=== PATIENT | female | born 1990 | race Caucasian/White ===

== ENCOUNTER → 2024-01-07 06:43 | Outpatient (CLI) | payer OTHER, SELFPAY ==
--- NOTE | 2024-01-07 06:46 | DI.US.S_ITS ---
PROCEDURE: US OB >= 14 WEEKS FETUS INDICATIONS: ANATOMY SCAN OUTSIDE/PRIOR DATING DATA: Last menstrual period (LMP): 08/09/2023. LMP-based estimated date of delivery (JO): 05/15/2024. The calculations are made using the clinical JO of 05/15/2024. TECHNIQUE: Real-time scanning was performed of the fetus, with image documentation and biometric measurements. Endovaginal scanning: Not performed COMPARISON: None. FINDINGS: General: A single living intrauterine gestation is present. Presentation: Vertex. Placenta: Placental position is posterior , without previa. Low lying placenta, with the edge 1.6 cm from the cervical os. Amniotic fluid index: 15.5 cm, normal range is 5-24 cm. Single deepest vertical pocket is 4.6 cm. heart rate: 152 beats per minute. Maternal cervical canal: 5.4 cm long. Normal lower limit is 2.5 cm. biometrics: Biparietal diameter: 5.5 cm, 22 weeks 5 days Head circumference: 20.2 cm, 22 weeks 3 days Abdominal circumference: 17.4 cm, 22 weeks 2 days Femur length: 3.8 cm, 22 weeks 1 day Clinically estimated gestational age: 21 weeks 4 days Composite gestational age from present scan: 22 weeks 3 days Estimated weight and percentile: 489 g, 80th percentile Anatomic survey: Neuro: Ventricles are non-dilated at less than 10 mm. Cisterna magna is normal at 3-11 mm. Cerebellum is normal in size and morphology. Nuchal skin fold: Normal at less than 6 mm between 14-21 weeks gestational age. Face: Lip, facial profile are normal. Nasal bone is not clearly identified, but possibly due to positioning. Spine: No evidence for spina bifida. Heart: 4-chambered heart is present, with normal ventricular outflow tracts. Diaphragm: Diaphragm is intact. Stomach: Left-sided stomach is present. Kidneys: No hydronephrosis. Normal is less than 5 mm in 2nd trimester, less than 7 mm in 3rd trimester. Cord: 3-vessel cord has orthotopic insertion. Bladder: Normal in size. Extremities: All 4 extremities identified. IMPRESSION: Single living intrauterine at 22 weeks 3 days, JO of 05/15/2024. Nasal bone not is not clearly identified. Recommend short-term follow-up. Otherwise, normal anatomy survey. Estimated weight of 489 g, 80th percentile. We strive to produce accurate, complete, and clear reports of imaging services. To assist us in improving patient care, this report was composed using standard report templates and voice recognition software. Therefore, it may contain abnormal punctuation, insertions and/or omissions. Occasional wrong-word or sound-alike substitutions may occur. Though we review the report and make efforts to correct it, we do recommend that the report be read carefully in proper context to recognize any text inaccuracies. Dictated by: Winston Louie M.D. on 01/07/2024 at 9:51 Approved by: Winston Louie M.D. on 01/07/2024 at 9:54
== END ==
PROVIDERS: Referring Provider Advanced Practice Midwife; Visit Provider Advanced Practice Midwife
DX: Z34.02 Encounter for supervision of normal first pregnancy, second trimester (principal); Z3A.22 22 weeks gestation of pregnancy
CPT/HCPCS: 76811

== ENCOUNTER → 2024-01-13 06:47 | Outpatient (CLI) | payer OTHER, SELFPAY ==
--- NOTE | 2024-01-13 06:49 | DI.US.S_ITS ---
PROCEDURE: US OB FOLLOW UP INDICATIONS: Anatomy follow up OUTSIDE/PRIOR DATING DATA: Last menstrual period (LMP): 08/09/2023. LMP-based estimated date of delivery (JO): 05/15/2024. First dating scan (date and location): 01/07/2024. Estimated date of delivery (JO) from first dating scan: 05/09/2024. The calculations are made using the clinical JO of 05/15/2024. TECHNIQUE: Real-time scanning was performed of the fetus, with image documentation. Endovaginal scanning: Not performed. COMPARISON: [facility], OB >= 14 WEEKS FETUS, 01/07/2024, 6:56. FINDINGS: A single living intrauterine gestation is present. Presentation: Vertex. Placenta: Placental position is posterior, without previa. Low lying 1.7 cm from the internal cervical os. Amniotic fluid index: 17.7 cm, normal range is 5-24 cm. Single deepest vertical pocket is 4.9 cm. heart rate: 132 beats per minute. Maternal cervical canal: 5.4 cm long. Normal lower limit is 2.5 cm. Clinically estimated gestational age: 22 weeks 3 days Nasal bone is not within normal limits. IMPRESSION: 1. Alvaren[place] living intrauterine at 22 weeks 3 days based on prior clinical dating. 2. Normal amniotic fluid. Low lying placenta 1.7 cm from the internal cervical os. 3. Normal nasal bone. -Follow-up OB ultrasound is recommended. Dictated by: Cash Maldonado M.D. on 01/13/2024 at 12:12 Approved by: Cash Maldonado M.D. on 01/13/2024 at 12:23
== END ==
LOC: US 06:48
PROVIDERS: Referring Provider Advanced Practice Midwife; Visit Provider Advanced Practice Midwife
DX: O44.42 Low lying placenta NOS or without hemorrhage, second trimester (principal); Z3A.22 22 weeks gestation of pregnancy
CPT/HCPCS: 76816

== ENCOUNTER → 2024-03-04 13:43 | Outpatient (CLI) | payer OTHER, SELFPAY ==
--- NOTE | 2024-03-04 13:45 | DI.US.S_ITS ---
PROCEDURE: US OB LIMITED INDICATIONS: LOW LYING PLACENTA OUTSIDE/PRIOR DATING DATA: Last menstrual period (LMP): 08/09/2023. LMP-based estimated date of delivery (JO): 05/15/2024. The calculations are made using the clinical JO of 05/15/2024. TECHNIQUE: Real-time scanning was performed of the fetus, with image documentation. Endovaginal scanning: Not performed COMPARISON: [facility], OB FOLLOW UP, 01/13/2024, 7:03. FINDINGS: A single living intrauterine gestation is present. Presentation: Vertex, spine left. Placenta: Placental position is posterior. The inferior margin of the placenta is 2.5 cm from the internal cervical os. Amniotic fluid index: 18.0 cm, normal range is 5-24 cm. Single deepest vertical pocket is 6.5 cm. heart rate: 149 beats per minute. Maternal cervical canal: 6.5 cm long. Normal lower limit is 2.5 cm. Clinically estimated gestational age: 29 weeks 5 days Mild right pelviectasis measuring 6.6 mm. No left pelviectasis. IMPRESSION: 1. Alvarenga living intrauterine at 29 weeks 5 days based on prior dating. 2. Normal amniotic fluid. Placenta is within normal limits. The inferior margin of the placenta is 2.5 cm from the internal cervical os. 3. Mild right kidney pelviectasis measuring 6.6 cm. Upper limits of normal. Dictated by: Cash Maldonado M.D. on 03/05/2024 at 14:41 Approved by: Cash Maldonado M.D. on 03/05/2024 at 14:50
== END ==
PROVIDERS: Referring Provider Advanced Practice Midwife; Visit Provider Advanced Practice Midwife
DX: Z34.03 Encounter for supervision of normal first pregnancy, third trimester (principal); Z3A.29 29 weeks gestation of pregnancy
CPT/HCPCS: 76815

== ENCOUNTER → 2024-03-17 16:23 | Outpatient (CLI) | payer OTHER, SELFPAY ==
[2024-03-17 17:31] LABS: Alanine Aminotransferase 11 IU/L (<35); Albumin 3.5 g/dL (3.5-5.0); Albumin Globulin Ratio 1.1 (1.0-2.8); Alkaline Phosphatase 111 U/L (38-126); Aspartate Aminotransferase 20 IU/L (14-36); Bilirubin Total 0.6 mg/dL (0.2-1.3); Bilirubin Unconjugated 0.2 mg/dL (0.0-1.1); Globulin 3.1 g/dL (1.7-4.1); HEMOLYSIS < 15 (0-50); Total Protein 6.6 g/dL (6.3-8.2)
== END ==
PROVIDERS: Referring Provider Nurse Practitioner Obstetrics & Gynecology; Visit Provider Nurse Practitioner Obstetrics & Gynecology
DX: Z34.90 Encounter for supervision of normal pregnancy, unspecified, unspecified trimester (principal); L29.9 Pruritus, unspecified
CPT/HCPCS: 36415; 80076; 82239

== ENCOUNTER 2024-05-16 09:03 | Inpatient (IN) | payer OTHER, SELFPAY ==
[2024-05-16 10:17] LABS: Add Manual Diff / Slide Review NO; Basophils Absolute Auto 0 /uL (0-100); Basophils Percent Auto 0.2 % (0-2); Eosinophils Absolute Auto 0 /uL (0-450); Eosinophils Percent Auto 0.5 % (2-4); Hematocrit 33.8 % (36-46); Hemoglobin 11.6 g/dL (12.0-16.0); Lymphocytes Absolute Auto 1600 /uL (1100-4500); Lymphocytes Percent Auto 18.2 % (25-40); Mean Corpuscular HGB Conc 34.4 % (30-36); Mean Corpuscular Hemoglobin 28.9 PG (26-34); Monocytes Absolute Auto 400 /uL (0-900); Monocytes Percent Auto 4.4 % (3-14); Neutrophils Absolute Auto 6900 /uL (1500-7000); Neutrophils Percent Auto 76.7 % (50-75); Platelet Count 131 X10^3/uL (150-400); Red Blood Cell Count 4.03 X10^6/uL (4.0-5.2); Red Cell Distribution Width 13.8 % (11.6-14.8)
[2024-05-16 10:51] VITALS: BP 126/82
--- NOTE | 2024-05-16 12:36 | P.HPOB_ITS ---
OB HPI Date/Time Date of admission: 05/16/24 Date Patient Seen: 05/16/24 Time Patient Seen: 11:00 History of Present Condition Chief complaint: PROM : 2 Para: 0 Estimated Date of Delivery: 05/15/24 Estimated Gestational Age (weeks): 40w1d Narrative: Irma Arzola is a 33 year old female who is 40w1d by LMP and confirmed by 7 week ultrasound. She received uncomplicated care with CNMs throughout this . She is here today well supported by her , Raza. Irma reported leaking of fluid that started approx 0100 and has continued with normal movement since then. Initially declined admission; now is here and happy to stay, consents to augmentation of labor. Amniotic fluid has been clear and pink tinged; she has also noticed blood smeared mucus for the last few days. History of Present care: good care, initiated at week # (7), number of visits (11) and pounds weight gain (22) Dating criteria: LMP confirmed by 1st trimester US Ultrasounds: normal 1st trimester US, normal mid trimester US and abnormal US findings (placenta previa resolved at 30 weeks) Obstetrical complications: none Medical complications: gastrointestinal (GERD) and psychiatric (Anxiety) Preadmission Labs Blood type: A (+) positive -: Antibody screen: negative, Cystic fibrosis screen: negative, GBS status: negative, HBsAG: negative, HIV: negative, HSV 1: negative, HSV 2: negative and RPR/VDLR: negative -: Chlamydia screen: not detected and Gonorrhea screen: not detected -: Rubella: immune and Varicella: immune HCT: 33.7 HCAB: negative PAP: Abnormal (ASCUS, HPV negative) Cell-free DNA: Low risk, XY Urine: No growth 1 hr GTT: 126 Prior (ies) History: TAB at 6weeks in 2016 Evaluation Evaluation Baseline heart rate: 140 Variability: Moderate (11-25) monitor accelerations: Present Monitor Decelerations: Absent Contraction Frequency (minutes): 9 (irregular in timing and intensity) Uterine Contraction Intensity: Strong/Firm Status: Category l Non-invasive Membranes Rupture Test: positive Comments: SVE deferred d/t PROM x 8 hours Cephalic presentation confirmed with bedside ultrasound. [facility] Medical History (Updated 05/16/24 @ 18:15 by Lakshmi Rees CNM, GRETCHEN) Tendonitis Depression with anxiety GERD (gastroesophageal reflux disease) Social History (Updated 05/16/24 @ 18:17 by Lakshmi Rees CNM, GRETCHEN) do you feel safe at home: Yes Smoking Status: Never smoker alcohol intake: former substance use type: marijuana Type(s) of exercise: walking and weight lifting Meds Home Medications and Allergies Home Medications Medication Instructions Recorded Confirmed Type No Known Home Medications 05/16/24 05/16/24 History Allergies Allergy/AdvReac Type Severity Reaction Status Date / Time Papaya Derivative Allergy Unknown Swelling Verified 05/16/24 18:20 of Lip/Tongue/Throat tree nuts Allergy Mild ITCHING Uncoded 05/16/24 18:20 ibuprofen AdvReac Intermediate Gastrointestinal Uncoded 05/16/24 18:20 Upset Review of Systems Review of Systems Narrative: Negative except as mentioned in HPI OB Exam Vital signs Blood Pressure: 131/84 Pulse Rate: 83 Temperature: 97.9 F Resp Effort & Inspection: normal respiratory effort, able to speak in complete sentences and symmetric chest movement Auscultation: clear to auscultation bilaterally Cardio Rate: regular rate Rhythm: regular rhythm Presentation: vertex Estimated Weight (lbs): 7 Amniotic Fluid: clear Objective Labs 05/16/24 12:35 Labs: Laboratory Results - last 24 hr 05/16/24 10:00 WBC 9.0 RBC 4.03 Hgb 11.6 L Hct 33.8 L MCV 84.0 MCH 28.9 MCHC 34.4 RDW 13.8 Plt Count 131 L Neut % (Auto) 76.7 H Lymph % (Auto) 18.2 L [place] % (Auto) 4.4 Eos % (Auto) 0.5 L Baso % (Auto) 0.2 Neut # (Auto) 6900 Lymph # (Auto) 1600 [place] # (Auto) 400 Eos # (Auto) 0 Baso # (Auto) 0 Blood Type A Positive Antibody Screen Negative Assessment and Plan Assessment and Plan Assessment and Plan narrative: at 40w1d by LMP and confirmed by 7 week ultrasound. GBS neg Rh positive Anxiety Depression FHR Cat 1 PROM x 9 hours Plan: Admit to L&D. Amnisure to confirm ROM. Review r/b/a of augmentation of labor versus expectant management. Begin pitocin augmentation with continuous monitoring. Epidural when uncomfortable with contractions/desired. Anticipate . Time-Based Coding :: [TOTAL MINUTES] spent with patient and on the chart (including review of chart, obtaining history, exam, reviewing outside data, placing orders, documenting exam and treatment plan, and counseling patient) on [DATE].
[2024-05-16 12:47] LABS: Add Manual Diff / Slide Review NO; Basophils Absolute Auto 100 /uL (0-100); Basophils Percent Auto 0.7 % (0-2); Eosinophils Absolute Auto 0 /uL (0-450); Eosinophils Percent Auto 0.3 % (2-4); Hematocrit 35.8 % (36-46); Hemoglobin 12.3 g/dL (12.0-16.0); Lymphocytes Absolute Auto 2200 /uL (1100-4500); Lymphocytes Percent Auto 20.9 % (25-40); Mean Corpuscular HGB Conc 34.3 % (30-36); Mean Corpuscular Hemoglobin 28.9 PG (26-34); Mean Corpuscular Volume 84.5 fL (80-100); Monocytes Absolute Auto 500 /uL (0-900); Monocytes Percent Auto 4.9 % (3-14); Neutrophils Absolute Auto 7700 /uL (1500-7000); Neutrophils Percent Auto 73.2 % (50-75); Platelet Count 140 X10^3/uL (150-400); Red Blood Cell Count 4.24 X10^6/uL (4.0-5.2); White Blood Cell Count 10.5 X10^3/uL (4.5-11.0)
[2024-05-16] MEDS: LACTATED RINGERS 1,000 ML 100 ML IV ×2 (14:23→20:38)
[2024-05-16] MEDS: OXYTOCIN PREMIX 30 UNIT/500 ML PLAST..BAG IV (14:24)
[2024-05-16 18:27] VITALS: BP 131/84; PULSE 83; TEMP 36.6
--- NOTE | 2024-05-16 18:42 | PM.OBPNLAB ---
Date/Time Date Patient Seen: 05/16/24 Time Patient Seen: 17:00 Pain Control Pain control: tolerating well Comments: Irma is feeling contractions intensify, but most are still very manageable. She is watching television with her . Pelvic Exam Amniotic membrane status: Ruptured (x 16 hours) Comments: Clear fluid. Pitocin initiated at 1424. Vital Signs at 1436: BP 130/85 HR 73 bpm T: 36.6 C Contractions Contractions on admission: irregular Monitor mode: External Pitocin rate (mU/min): 8 Contraction frequency (min): 5 (3-8) Contraction duration (min): 1 (30 sec - 2 min) Contraction pattern: Irregular Contraction intensity: Strong/Firm Status status: Category l Heart Rate Baseline: 125 (wandering baseline) Monitor Accelerations: Present Monitor Decelerations: Absent Monitor Variability: Moderate Assessment and Plan Assessment: other (PROM, early labor, augmentation) Plan: continuous present management Comments: at 40w1d Early labor PROM x 16 hours Afebrile GBS negative FHR Cat 1 Continue augmentation with pitocin. Epidural when desired; recommend that contractions be more consistent and painful. Anesthesia present, consenting patient for epidural. Anticipate NSVB.
--- NOTE | 2024-05-16 21:04 | P.PCN_ITS ---
Regional Block Pre-procedure Procedure: Continuous Lumbar Epidural for L&D (with dural puncture) Attending OB provider: Lakshmi Rees PMH/ROS narrative: 33yo female in labor with SROM requesting epidural. See anesthesia pre- evaluation note for further details. ASA Class: II Labs: Hct 35.8 % (36-46) L 05/16/24 12:35 Plt Count 140 X10^3/uL (150-400) L 05/16/24 12:35 Medications: Current Medications Generic Name Dose Route Start Last Admin Trade Name Freq PRN Reason Stop Dose Admin Acetaminophen 975 mg 05/16/24 12:32 Acetaminophen 325 Mg Tablet PO Q8H PRN Pain, Mild (1-3) Calcium Carbonate 1,000 mg 05/16/24 12:32 Calcium Carbonate 500 Mg Tab PO Q2HR PRN Dyspepsia Carboprost Tromethamine 250 mcg 05/16/24 12:32 Carboprost 250 Mcg/Ml Ampul IM Q90M PRN Bleeding Diphenhydramine HCl 25 mg 05/16/24 21:03 Diphenhydramine 50 Mg/Ml Vial IV Q10M PRN Pruritis Ephedrine Sulfate 10 mg 05/16/24 21:03 Ephedrine 50 Mg/Ml Vial IV Q5M PRN Blood pressure decrease more than 20% of baseline. Fentanyl 100 mcg 05/16/24 12:32 Fentanyl 100 Mcg/2 Ml Inj IV Q1H PRN Pain, Severe (7-10) Lactated Ringer's 1,000 mls @ 100 mls/hr 05/16/24 12:45 05/16/24 20:38 Lactated Ringers IV 05/16/24 22:44 100 mls/hr CONT HUNG Administration Oxytocin/Lactated Ringer's 30 unit in 500 mls @ 200 mls/hr 05/16/24 12:32 Oxytocin Premix IV CONT PRN Bleeding Protocol Tranexamic Acid 1,000 mg/ 100 mls @ 600 mls/hr 05/16/24 12:32 Sodium Chloride IV NOW PRN Bleeding Oxytocin/Lactated Ringer's 30 unit in 500 mls @ 2 mls/hr 05/16/24 12:45 05/16/24 14:24 Oxytocin Premix IV 2 milliunit/min TITRATE HUNG 2 mls/hr Administration Protocol 2 MILLIUNIT/MIN FENT 2MCG/ML BUPIV 0.125% EPI 200 mcg in 100 mls @ 6 mls/hr 05/16/24 21:15 Fentanyl/Bupiv/Ns 2mcg/Ml - 0.125% EPIDURAL CONT HUNG Lidocaine HCl 20 ml 05/16/24 12:32 Lidocaine 1% 20 Ml INJ INTRA-OP PRN Post Delivery Methylergonovine Maleate 0.2 mg 05/16/24 12:32 Methylergonovine 0.2 Mg Tablet PO Q6HR PRN Heavy Bleeding Methylergonovine Maleate 0.2 mg 05/16/24 12:32 Methylergonovine 0.2 Mg/Ml Vial IM NOW PRN Bleeding Mineral Oil 30 ml 05/16/24 12:32 Mineral Oil 30 Ml Udc TOP PRN PRN Version Misoprostol 800 mcg 05/16/24 12:32 Misoprostol 200 Mcg Tablet MI NOW PRN Bleeding Misoprostol 400 mcg 05/16/24 12:32 Misoprostol 200 Mcg Tablet SL NOW PRN Bleeding Nalbuphine HCl 2.5 mg 05/16/24 21:03 Nalbuphine 20 Mg/Ml Ampul IV Q10M PRN Pruritis Naloxone HCl 0.2 mg 05/16/24 12:32 Naloxone 0.4 Mg/Ml Vial IV Q2MIN PRN Opiate Reversal Ondansetron HCl 4 mg 05/16/24 12:32 Ondansetron 4 Mg/2 Ml Inj IV Q4HR PRN Nausea And Vomiting Oxytocin 10 unit 05/16/24 12:32 Oxytocin 10 Unit/Ml Vial IM NOW PRN Bleeding Allergies: Allergies Allergy/AdvReac Type Severity Reaction Status Date / Time Papaya Derivative Allergy Unknown Swelling Verified 05/16/24 18:20 of Lip/Tongue/Throat tree nuts Allergy Mild ITCHING Uncoded 05/16/24 18:20 ibuprofen AdvReac Intermediate Gastrointestinal Uncoded 05/16/24 18:20 Upset Procedure Insertion date: 05/16/24 Insertion time: 20:42 Prep/Local: 1% lidocaine (Chloraprep) Interspace: L3-4 Patient position: sitting Needle: 18 gauge Daratead (27g 5 Raquel for dural puncture) Loss of resistance with: saline BEKAH at (cm): 6 Catheter placed at SKIN (cm): 14 Catheter in SPACE (cm): 8 Insertion: Yes CSF, No Blood, Yes Paresthesia with insertion, No Paresthesia with injection and No Test dose reaction Initial Medications TEST DOSE time: 20:43 TEST DOSE: 1.5% lidocaine with epinephrine 1:200k (mL): 3 BOLUS DOSE time: 20:44 BOLUS DOSE (mL): 5 BOLUS DOSE med: other (2 ml same as test dose, 3 ml 2% lidocaine PF) Infusion INFUSION: 0.125% bupivacaine and with fentanyl 2 mcg/mL Initial rate (mL/hr): 8 Subsequent interventions: Epidural pump started at 20:55. Pt reports zero pain with most recent contraction; able to move BLE. 05/17 02:00-02:15 (with time change, dropped back to 01:15) - Pt with c/o LUQ pain with contractions; unable to give pain score but appears somewhat uncomfortable during contractions, which she reports as I think I'm having one, only feeling the LUQ crampy pain. Able to move BLE. Sensory level checked with epidural coverage to T10 on R, decreased throughout on L. RN reports tracing worse when pt on L side, so pt just tilted to L with pillow under R hip. Epidural bolused with 10 ml of 2% lido PF. Infusion pump rate increased from 8 to 10 ml/hr and near-empty epidural bag replaced with new one. KR 03:05 - Pt writhing and moaning in pain. Now complete per RN. Pt reports she could move BLE well after previous bolus, and she needs to labor down. Bolused with another 10 ml of 2% lido PF and increased infusion rate to 12 ml/hr. KR Post-procedure Anesthesia date START: 05/16/24 Anesthesia time START: 20:35 Anesthesia date END: 05/17/24 Anesthesia time END: 06:28 Post-procedure Anesthesia Assessment: Yes CV function: HR/BP stable, Yes Resp function: RR/sat/airway adequate, Yes Post-op hydration adequate, Yes Pain control adequate, Yes Nausea & vomiting absent, Yes Temperature > 36 C, Yes Mental status appropriate and No Anesthesia complications
--- NOTE | 2024-05-16 22:04 | PM.OBPNLAB ---
Date/Time Date Patient Seen: 05/16/24 Time Patient Seen: 22:04 Pain Control Pain control: epidural Comments: Irma is relieved now that she's comfortable with the epidural. Has slept about an hour. VS: BP 120/78 Temp: 36.6 C Pulse 74 bpm SpO2 99% Pelvic Exam Dilation (cm): 4 Effacement (%): 90 station: -2 Amniotic membrane status: Ruptured (x 21 h) Comments: Clear fluid Bloody show on exam. CE: 3.5-5 cm with cervical manipulation Caput present Contractions Contractions on admission: irregular Monitor mode: External Pitocin rate (mU/min): 12 Contraction frequency (min): 5 (3-8) Contraction duration (min): 1 Contraction pattern: Irregular Contraction intensity: Strong/Firm Status status: Category l Heart Rate Baseline: 125 Monitor Accelerations: Present Monitor Decelerations: Absent Monitor Variability: Moderate Assessment and Plan Comments: at 40w1d Comfortable with epidural Early labor PROM x 21 hours Afebrile GBS neg FHR Cat 1 Continue pitocin augmentation, continuous monitoring Recommend rest/sleep and frequent position changes Reassess PRN or in 4 hours Anticipate NSVB.
[2024-05-17] MEDS: FENT 2MCG/ML BUPIV 0.125% EPI 200 MCG/100 ML PLAST..BAG 6 MCG EPIDURAL (01:02)
[2024-05-17] MEDS: LACTATED RINGERS 1,000 ML 100 ML IV (01:02)
[2024-05-17 01:34] LABS: Appearance Urine UA CLEAR; Bilirubin Urine UA NEGATIVE (NEGATIVE); Color Urine UA YELLOW; Glucose Urine UA NEGATIVE (Negative); Ketones Urine UA NEGATIVE (NEGATIVE); Leukocyte Esterase Urine UA NEGATIVE (NEGATIVE); Nitrite Urine UA NEGATIVE (Negative); Occult Blood Urine UA TRACE-INTACT (Negative); Protein Urine UA NEGATIVE (Negative); Specific Gravity Urine UA <=1.005 (1.000-1.035); Urobilinogen Urine UA 0.2 E.U./dL (0.2)
[2024-05-17 01:46] LABS: Alanine Aminotransferase 11 IU/L (<35); Albumin Globulin Ratio 1.2 (1.0-2.8); Alkaline Phosphatase 190 U/L (38-126); Aspartate Aminotransferase 22 IU/L (14-36); BUN Creatinine Ratio 17.1 (6-22); Bilirubin Total 0.6 mg/dL (0.2-1.3); Blood Urea Nitrogen 13 mg/dL (7-17); Calcium 8.5 mg/dL (8.4-10.2); Carbon Dioxide 20 mmol/L (22-32); Chloride 107 mmol/L (98-107); Estimated Glomerular Filt Rate > 60 mL/min (>60); Globulin 2.5 g/dL (1.7-4.1); Glucose 80 mg/dL (70-100); HEMOLYSIS < 15 (0-50); Potassium 4.5 mmol/L (3.4-5.1); Sodium 132 mmol/L (137-145); Total Protein 5.5 g/dL (6.3-8.2); Uric Acid 7.1 mg/dL (2.5-6.2)
[2024-05-17 01:47] LABS: Creatinine Urine Random 47.77 mg/dL; Protein (Total) Urine Random 14 mg/dL (0-12); Protein Creatinine Ratio Urine 0.29 GRAM/24H
[2024-05-17 01:49] LABS: Add Manual Diff / Slide Review NO; Basophils Absolute Auto 0 /uL (0-100); Basophils Percent Auto 0.2 % (0-2); Eosinophils Absolute Auto 0 /uL (0-450); Eosinophils Percent Auto 0.1 % (2-4); Hematocrit 35.9 % (36-46); Hemoglobin 12.1 g/dL (12.0-16.0); Lymphocytes Absolute Auto 2400 /uL (1100-4500); Lymphocytes Percent Auto 17.4 % (25-40); Mean Corpuscular HGB Conc 33.6 % (30-36); Mean Corpuscular Hemoglobin 28.4 PG (26-34); Mean Corpuscular Volume 84.6 fL (80-100); Monocytes Absolute Auto 600 /uL (0-900); Monocytes Percent Auto 4.3 % (3-14); Neutrophils Absolute Auto 10600 /uL (1500-7000); Platelet Count 120 X10^3/uL (150-400); Red Blood Cell Count 4.25 X10^6/uL (4.0-5.2); Red Cell Distribution Width 13.8 % (11.6-14.8); White Blood Cell Count 13.6 X10^3/uL (4.5-11.0)
[2024-05-17] MEDS: ONDANSETRON 4 MG/2 ML INJ IV (03:02)
--- NOTE | 2024-05-17 03:37 | PM.OBPNLAB ---
Date/Time Date Patient Seen: 05/17/24 Time Patient Seen: 03:37 Pain Control Pain control: epidural (received 2 boluses as baby descended into pelvis) Comments: Irma has been having a difficult time coping with contractions; better after two extra doses of medication in epidural given but feeling a lot of pressure in her rectum/pelvis. Pelvic Exam Dilation (cm): 10 Effacement (%): 100 station: +1 Amniotic membrane status: Ruptured (x 21 h) Comments: CE by RN at 0230: complete, -1 station VS: First elevated pressure at 1934: 156/92 126/83 at 0128; 141/92 at 0212, 149/83 at 0228, 143/83 at 0302, 136/82 at 0317, 144/95 at 0328, 133/86 at 0342, 0358 129/89 HR 82-93 bpm SpO2: 100% Temp: 36.7 C Contractions Monitor mode: External Pitocin rate (mU/min): 8 Contraction frequency (min): 5 (3-8) Contraction pattern: Irregular Contraction intensity: Strong/Firm Status status: Category l Heart Rate Baseline: 125 Monitor Accelerations: Present Monitor Decelerations: Absent Monitor Variability: Moderate Assessment and Plan Assessment: active labor Plan: continuous present management Comments: in 2nd stage labor at 40w2d GBS neg Rh pos Gestational hypertension versus mild hypertensive due to pain PROM x 27 hours Initiate active pushing Titrate pitocin down per contraction pattern Provide emotional support Continue to encourage position change Review normal PET panel Anticipate NSVB
[2024-05-17] MEDS: OXYTOCIN PREMIX 30 UNIT/500 ML PLAST..BAG 200 UNIT IV ×2 (06:30→07:19)
[2024-05-17] MEDS: TRANEXAMIC ACID 1,000 MG in SODIUM CHLORIDE 0.9% 100 ML 600 MG IV ×2 (07:05→07:52)
--- NOTE | 2024-05-17 07:15 | PM.OBPRVD ---
Events: Labor Augmentation, Premature Rupture Membrane and Prolonged Rupture Membrane Labor & Delivery Delivery date: 05/17/24 Intrapartal Events: Prolonged 2nd Stage > 2.5 hours Cervical ripening method: none Induction method: per pitocin protocol Delivery augmentation: pitocin Delivery monitor: external FHT Route of delivery: Episiotomy description: None L&D Laceration Description: Perineal - 1st Degree and Vaginal - 1st Degree Delivery repair: chromic (3-0) Quantitative Blood Loss: 840 Anesthesia Type: Epidural Narrative: Labor progressed well with max 13 units of pitocin. Nova's epidural stopped working well around 0100 even after anaesthesia provided extra medication doses and Irma used self dosing often. Nova had a difficult 2nd stage, pushing for 3 hours and 3 minutes. She pushed on her left and right side as well as her back, rotating between the three throughout second stage with a lot of coaching and hands on support. To encourage after very little progress for about 1 hour, CNM helped guide the head under the pubic bone. The baby emerged MINERVA along with R hand and L shoulder; no nuchal cord. With one last push, the entire body delivered. The vigorous baby boy was placed on the maternal abdomen for drying and stimulation. Upon placing the on the mother's lower abdomen, bleeding was noticed and cord avulsion was assumed. CNM immediately clamped 's cord and SNM immediately clamped placental side. Apgars 9/9. No immediate cardiovascular side effects noted to the baby as a result of the avulsion. Cord blood was collected and sent to the lab for baseline CBC. Chux pad was removed and weighed for QBL. Pitocin was started to manage the 3rd stage. Perineum was inspected and found to have a 1st degree tear that extended down close to the anus and superficially into the introitus of the vagina; sutured with chromic 3-0 after rectal inspection revealed intact sphincter and perineal muscles. Second chux pad was removed and weighed for QBL and pitocin increased to max rate; TXA was ordered but delayed due to nursing difficulties/pump malfunction so a 2nd IV was started. QBL 840mL. Bleeding continued, so a 2nd bag of pitocin and TXA given, bladder emptied with straight catheter. PROM x 30 hours, clear fluid throughout. Mother and baby were skin to skin and stable when I left the room. Due to SNM getting blood exposure in mucus membranes, exposure panel, no charge, ordered and Irma consents to testing. Baby 1: Infant gender: Male Presentation: compound (one hand) Position: Right Occiput Transverse Placenta delivery description: Spontaneous and Expressed Cord Vessel Description: 3 Vessels score (1 min): 9 score (5 min): 9 weight: 3.365 kg Plan for aftercare: Routine care
--- NOTE | 2024-05-17 10:12 | PM.OBDS.1 ---
Discharge Providers Provider Date of admission: 05/16/24 09:03 Primary care physician: Lakshmi Rees CNM, ARNP Consults: 05/16/24 12:32 Consult to Anesthesiology Urgent Comment: Consulting Provider: Anesthesiologist Reason for consultation: Epidural 05/18/24 08:34 Consult to Marshmallow Machine Operator Routine Comment: Discharge provider: Lakshmi Rees CNM, ARNP Summary Hospital Course Date Patient Seen: 05/18/24 Time Patient Seen: 10:12 Diagnoses: O80 Peripartum Data Delivery Method: Natural Vaginal Laceration Description: None Episiotomy description: None 1: Gender: Male Disposition of : home Discharge Diagnosis (1) FTND (full term normal delivery): Status: Acute (2) Encounter for care in third trimester of first : Status: Acute (3) Rh(D) positive: Status: Acute (4) Depression with anxiety: Status: Acute Status at Discharge Cognitive/behavioral status at discharge: oriented and calm Functional status at discharge: independent ambulation Overall status at discharge: patient is progressing back to baseline Time Spent with Patient Time attestation: Total time spent providing and/or coordinating discharge services: Time spent: Less than 30 minutes Specific discharge activities: discharge teaching Objective Labs 05/17/24 01:36 PST 05/17/24 01:20 PST Labs: Laboratory Results - last 24 hr 05/16/24 05/16/24 05/17/24 10:00 12:35 01:20 PST WBC 10.5 RBC 4.24 Hgb 12.3 Hct 35.8 L MCV 84.5 MCH 28.9 MCHC 34.3 RDW 14.0 Plt Count 140 L Neut % (Auto) 73.2 Lymph % (Auto) 20.9 L [place] % (Auto) 4.9 Eos % (Auto) 0.3 L Baso % (Auto) 0.7 Neut # (Auto) 7700 H Lymph # (Auto) 2200 [place] # (Auto) 500 Eos # (Auto) 0 Baso # (Auto) 100 Sodium 132 L Potassium 4.5 Chloride 107 Carbon Dioxide 20 L BUN 13 Creatinine 0.76 Estimated GFR > 60 BUN/Creatinine Ratio 17.1 Glucose 80 Uric Acid 7.1 H Calcium 8.5 Total Bilirubin 0.6 AST 22 ALT 11 Alkaline Phosphatase 190 H Total Protein 5.5 L Albumin 3.0 L Globulin 2.5 Albumin/Globulin Ratio 1.2 Urine Color Yellow Urine Appearance Clear Urine pH 6.0 Ur Specific [place] <=1.005 Urine Protein Negative Urine Glucose (UA) Negative Urine Ketones Negative Urine Occult Blood Trace-intact Urine Nitrate Negative Urine Bilirubin Negative Urine Urobilinogen 0.2 Ur Leukocyte Esterase Negative U Random Total Protein 14 H Urine Creatinine 47.77 Protein/Creatinin Ratio 0.29 Blood Type A Positive Antibody Screen Negative 05/17/24 01:36 PST WBC 13.6 H RBC 4.25 Hgb 12.1 Hct 35.9 L MCV 84.6 MCH 28.4 MCHC 33.6 RDW 13.8 Plt Count 120 L Neut % (Auto) 78.0 H Lymph % (Auto) 17.4 L [place] % (Auto) 4.3 Eos % (Auto) 0.1 L Baso % (Auto) 0.2 Neut # (Auto) 60860 H Lymph # (Auto) 2400 [place] # (Auto) 600 Eos # (Auto) 0 Baso # (Auto) 0 Sodium Potassium Chloride Carbon Dioxide BUN Creatinine Estimated GFR BUN/Creatinine Ratio Glucose Uric Acid Calcium Total Bilirubin AST ALT Alkaline Phosphatase Total Protein Albumin Globulin Albumin/Globulin Ratio Urine Color Urine Appearance Urine pH Ur Specific [place] Urine Protein Urine Glucose (UA) Urine Ketones Urine Occult Blood Urine Nitrate Urine Bilirubin Urine Urobilinogen Ur Leukocyte Esterase U Random Total Protein Urine Creatinine Protein/Creatinin Ratio Blood Type Antibody Screen Exam Other: Fundus firm at U, midline. Lochia scant Perineum intact with minimal edema Discharge Plan Discharge Plan Patient Disposition: Home Discharge orders & Medications Prescriptions: No Action No Known Home Medications Follow up/Referrals: Lakshmi Rees, CNM, LANDING SUPPORT SPECIALIST [Primary Care Provider] - 2 Weeks (2 weeks and 6 weeks as scheduled in pt. e-mail.) Diet/Activity/Treatments Diet: Diet as Tolerated and Regular Diet comment: Increase fluid and fiber to aid in healing and prevent constipation. Activity: Low [place] x 2 weeks Cold/Heat Therapy: as needed Visit Report/Discharge Packet Stand Alone Forms: Patient Portal/API, Stroke Signs & Symptoms Discharge Data Primary Care Provider: Lakshmi Rees Attending Provider: Lakshmi Rees Admit Date/Time: 05/16/24 09:03
[2024-05-17] MEDS: DERMOPLAST SPRAY 20% 60 ML 1 SPRAY TOP (13:27)
[2024-05-17] MEDS: WITCH HAZEL/GLYCERIN PADS 1 EACH TOP (13:27)
[2024-05-17] MEDS: KETOROLAC 30 MG/ML VIAL IV ×2 (14:08→20:27)
[2024-05-17 14:46] LABS: Alanine Aminotransferase 16 IU/L (<35); Albumin 2.9 g/dL (3.5-5.0); Alkaline Phosphatase 168 U/L (38-126); Aspartate Aminotransferase 36 IU/L (14-36); BUN Creatinine Ratio 16.7 (6-22); Bilirubin Total 0.8 mg/dL (0.2-1.3); Blood Urea Nitrogen 14 mg/dL (7-17); Calcium 8.9 mg/dL (8.4-10.2); Carbon Dioxide 20 mmol/L (22-32); Chloride 108 mmol/L (98-107); Estimated Glomerular Filt Rate > 60 mL/min (>60); Globulin 2.8 g/dL (1.7-4.1); Glucose 104 mg/dL (70-100); HEMOLYSIS < 15 (0-50); Potassium 3.9 mmol/L (3.4-5.1); Sodium 133 mmol/L (137-145); Total Protein 5.7 g/dL (6.3-8.2); Uric Acid 7.9 mg/dL (2.5-6.2)
[2024-05-17 14:55] LABS: Alanine Aminotransferase 15 IU/L (<35)
[2024-05-17 17:29] LABS: HIV 1 & 2 Ab/Ag 4th Gen Combo NEGATIVE (NEGATIVE); Hep C Virus Ab w/Reflex Quant NEGATIVE s/c (NEGATIVE); Hepatitis B Surface Antigen NEGATIVE s/c (NEGATIVE)
[2024-05-17] MEDS: ACETAMINOPHEN 325 MG TABLET 650 MG PO (23:03)
[2024-05-18] MEDS: KETOROLAC 30 MG/ML VIAL IV ×2 (02:38→08:37)
[2024-05-18] MEDS: ACETAMINOPHEN 325 MG TABLET 650 MG PO ×2 (05:09→20:29)
[2024-05-18 05:41] LABS: Hematocrit 28.2 % (36-46); Hemoglobin 9.6 g/dL (12.0-16.0)
[2024-05-18 08:12] LABS: Add Manual Diff / Slide Review NO; Basophils Absolute Auto 0 /uL (0-100); Basophils Percent Auto 0.1 % (0-2); Eosinophils Absolute Auto 100 /uL (0-450); Eosinophils Percent Auto 0.4 % (2-4); Hematocrit 30.2 % (36-46); Lymphocytes Absolute Auto 2200 /uL (1100-4500); Lymphocytes Percent Auto 17.6 % (25-40); Mean Corpuscular HGB Conc 33.2 % (30-36); Mean Corpuscular Hemoglobin 28.4 PG (26-34); Mean Corpuscular Volume 85.6 fL (80-100); Monocytes Absolute Auto 500 /uL (0-900); Monocytes Percent Auto 4.2 % (3-14); Neutrophils Absolute Auto 9800 /uL (1500-7000); Neutrophils Percent Auto 77.7 % (50-75); Platelet Count 109 X10^3/uL (150-400); Red Blood Cell Count 3.53 X10^6/uL (4.0-5.2); Red Cell Distribution Width 13.9 % (11.6-14.8); White Blood Cell Count 12.6 X10^3/uL (4.5-11.0)
[2024-05-18 08:20] LABS: Alanine Aminotransferase 14 IU/L (<35); Albumin 2.8 g/dL (3.5-5.0); Alkaline Phosphatase 166 U/L (38-126); Aspartate Aminotransferase 80 IU/L (14-36); BUN Creatinine Ratio 15.9 (6-22); Bilirubin Total 0.4 mg/dL (0.2-1.3); Blood Urea Nitrogen 14 mg/dL (7-17); Calcium 8.4 mg/dL (8.4-10.2); Carbon Dioxide 21 mmol/L (22-32); Chloride 109 mmol/L (98-107); Estimated Glomerular Filt Rate > 60 mL/min (>60); Globulin 2.7 g/dL (1.7-4.1); Glucose 79 mg/dL (70-100); HEMOLYSIS 16 (0-50); Potassium 4.6 mmol/L (3.4-5.1); Sodium 133 mmol/L (137-145); Total Protein 5.5 g/dL (6.3-8.2)
[2024-05-18] MEDS: FERROUS SULFATE 325 MG TABLET PO (08:36)
[2024-05-18] MEDS: PRENATAL VIT,CALC/IRON/FOLIC 1 TABLET 1 TAB PO (08:36)
[2024-05-18 10:05] LABS: Creatinine Urine Random 63.28 mg/dL; Protein (Total) Urine Random 29 mg/dL (0-12); Protein Creatinine Ratio Urine 0.45 GRAM/24H
--- NOTE | 2024-05-18 11:06 | P.PNOB_ITS ---
Subjective - OB Subjective Interval history: Irma is a 33 year old who delivered a healthy baby boy on 05/17/24 at 40w2d after an uncomplicated . During , her BPs started in the 110s/high 60s and by 36 weeks were in the 120s/80s with the highest being 124/83. During labor, her blood pressures were labile with highest at 156/92, and some as low as 110/70s PET panels x3 done during labor and show increasing AST and decreasing platelets. Irma denies headache, visual changes, epigastric pain. She consents to starting magnesium sulfate after discussion of HELLP diagnosis and risks. She is overall feeling fine, bleeding is decreasing, she is voiding well, and she has not yet had a bowel movement since delivery yesterday. She has been eating and drinking normally, although Irma is baby colostrum and also giving him formula; still undecided if she will continue . Exam Vital Signs (past 8 hours): BP 134/80, 132/79. Last elevated pressure 140/85 at 1530 yesterday. Temp: 97.2 F RR 14/min HR 78 bpm Objective Labs 05/18/24 05:30 05/18/24 05:21 Labs: Laboratory Results - last 24 hr 05/17/24 05/17/24 05/18/24 14:24 14:24 05:21 WBC 12.6 H RBC 3.53 L Hgb 10.0 L Hct 30.2 L MCV 85.6 MCH 28.4 MCHC 33.2 RDW 13.9 Plt Count 109 L Neut % (Auto) 77.7 H Lymph % (Auto) 17.6 L [place] % (Auto) 4.2 Eos % (Auto) 0.4 L Baso % (Auto) 0.1 Neut # (Auto) 9800 H Lymph # (Auto) 2200 [place] # (Auto) 500 Eos # (Auto) 100 Baso # (Auto) 0 Sodium 133 L 133 L Potassium 3.9 4.6 Chloride 108 H 109 H Carbon Dioxide 20 L 21 L BUN 14 14 Creatinine 0.84 0.88 Estimated GFR > 60 > 60 BUN/Creatinine Ratio 16.7 15.9 Glucose 104 H 79 Uric Acid 7.9 H Calcium 8.9 8.4 Total Bilirubin 0.8 0.4 AST 36 80 H ALT 16 15 14 Alkaline Phosphatase 168 H 166 H Total Protein 5.7 L 5.5 L Albumin 2.9 L 2.8 L Globulin 2.8 2.7 Albumin/Globulin Ratio 1.0 1.0 U Random Total Protein Urine Creatinine Protein/Creatinin Ratio Hep Bs Antigen Negative Hepatitis C Antibody Negative HIV 1&2 Ab/P24 Ag 4thGn Negative 05/18/24 05/18/24 05:30 09:32 WBC RBC Hgb 9.6 L Hct 28.2 L MCV MCH MCHC RDW Plt Count Neut % (Auto) Lymph % (Auto) [place] % (Auto) Eos % (Auto) Baso % (Auto) Neut # (Auto) Lymph # (Auto) [place] # (Auto) Eos # (Auto) Baso # (Auto) Sodium Potassium Chloride Carbon Dioxide BUN Creatinine Estimated GFR BUN/Creatinine Ratio Glucose Uric Acid Calcium Total Bilirubin AST ALT Alkaline Phosphatase Total Protein Albumin Globulin Albumin/Globulin Ratio U Random Total Protein 29 H Urine Creatinine 63.28 Protein/Creatinin Ratio 0.45 Hep Bs Antigen Hepatitis C Antibody HIV 1&2 Ab/P24 Ag 4thGn Assessment & Plan Assessment and Plan (1) FTND (full term normal delivery): Status: Acute (2) Encounter for care in third trimester of first : Status: Acute (3) Rh(D) positive: Status: Acute (4) Depression with anxiety: Status: Acute (5) HELLP syndrome, complicating the puerperium: Status: Acute Plan day: 1 plan OB: other Comments: day 1 HELLP Transfer care to electron beam welder setter OB provider for magnesium sulfate. Time-Based Coding :: [TOTAL MINUTES] spent with patient and on the chart (including review of chart, obtaining history, exam, reviewing outside data, placing orders, documenting exam and treatment plan, and counseling patient) on [DATE].
[2024-05-18] MEDS: MAGNESIUM SULFATE 4 GM/100 ML PIGGYBACK IV (11:20)
[2024-05-18] MEDS: MAGNESIUM SULFATE 20 GM/500 ML IV.SOLN IV ×2 (11:54→20:59)
--- NOTE | 2024-05-18 14:18 | PM.OBPN.1 ---
Subjective - OB Subjective Patient comments: other (feeling unwell from mag bolus) [place] baby status: doing well [place] feeding status: pumping and bottle feeding Narrative: 33 yo G2 now P1 s/p 05/17/24 at 40w2d following uncomplicated . No hx of elevated pressures until labor when BP max 156/92. Bloodwork following delivery showing increasing AST and decreasing platelets. Denies headache, vision changes, or abdominal pain. All questions regarding HELLP syndrome, magnesium drip, and pre-eclampsia answered. Feeding pumped colostrum and giving formula. Undecided on . Date Patient Seen: 05/18/24 Time Patient Seen: 12:00 Exam Vital Signs (past 8 hours): BP 134/82 Narrative Exam Narrative: NAD, resting comfortably in bed, breathing easily Objective Labs 05/18/24 05:30 05/18/24 05:21 Labs: Laboratory Results - last 24 hr 05/17/24 05/17/24 05/18/24 14:24 14:24 05:21 WBC 12.6 H RBC 3.53 L Hgb 10.0 L Hct 30.2 L MCV 85.6 MCH 28.4 MCHC 33.2 RDW 13.9 Plt Count 109 L Neut % (Auto) 77.7 H Lymph % (Auto) 17.6 L [place] % (Auto) 4.2 Eos % (Auto) 0.4 L Baso % (Auto) 0.1 Neut # (Auto) 9800 H Lymph # (Auto) 2200 [place] # (Auto) 500 Eos # (Auto) 100 Baso # (Auto) 0 Sodium 133 L 133 L Potassium 3.9 4.6 Chloride 108 H 109 H Carbon Dioxide 20 L 21 L BUN 14 14 Creatinine 0.84 0.88 Estimated GFR > 60 > 60 BUN/Creatinine Ratio 16.7 15.9 Glucose 104 H 79 Uric Acid 7.9 H Calcium 8.9 8.4 Total Bilirubin 0.8 0.4 AST 36 80 H ALT 16 15 14 Alkaline Phosphatase 168 H 166 H Total Protein 5.7 L 5.5 L Albumin 2.9 L 2.8 L Globulin 2.8 2.7 Albumin/Globulin Ratio 1.0 1.0 U Random Total Protein Urine Creatinine Protein/Creatinin Ratio Hep Bs Antigen Negative Hepatitis C Antibody Negative HIV 1&2 Ab/P24 Ag 4thGn Negative 05/18/24 05/18/24 05:30 09:32 WBC RBC Hgb 9.6 L Hct 28.2 L MCV MCH MCHC RDW Plt Count Neut % (Auto) Lymph % (Auto) [place] % (Auto) Eos % (Auto) Baso % (Auto) Neut # (Auto) Lymph # (Auto) [place] # (Auto) Eos # (Auto) Baso # (Auto) Sodium Potassium Chloride Carbon Dioxide BUN Creatinine Estimated GFR BUN/Creatinine Ratio Glucose Uric Acid Calcium Total Bilirubin AST ALT Alkaline Phosphatase Total Protein Albumin Globulin Albumin/Globulin Ratio U Random Total Protein 29 H Urine Creatinine 63.28 Protein/Creatinin Ratio 0.45 Hep Bs Antigen Hepatitis C Antibody HIV 1&2 Ab/P24 Ag 4thGn Assessment & Plan Assessment and Plan (1) FTND (full term normal delivery): Status: Acute (2) Encounter for care in third trimester of first : Status: Acute (3) Rh(D) positive: Status: Acute (4) Depression with anxiety: Status: Acute (5) HELLP syndrome, complicating the puerperium: Status: Acute Plan day: 1 plan OB: routine care Comments: # Pre-eclampsia/HELLP Syndrome 05/18: Labs - plts 109; AST 80 -magnesium bolus 4g to be followed by 2g/hr -strict Is and Os -next labs in 6 hours then space to q12 hr labs -monitor for signs of magnesium toxicity, if needed order mag level -mag for 24 hours then monitor for 24 hours, earliest d/c Monday 05/21 Time-Based Coding :: 45 minutes spent with patient and on the chart (including review of chart, obtaining history, exam, reviewing outside data, placing orders, documenting exam and treatment plan, and counseling patient) on 05/18/24.
[2024-05-18 16:33] LABS: Add Manual Diff / Slide Review NO; Basophils Absolute Auto 0 /uL (0-100); Basophils Percent Auto 0.3 % (0-2); Eosinophils Absolute Auto 0 /uL (0-450); Eosinophils Percent Auto 0.2 % (2-4); Hemoglobin 11.1 g/dL (12.0-16.0); Lymphocytes Absolute Auto 2000 /uL (1100-4500); Mean Corpuscular HGB Conc 33.6 % (30-36); Mean Corpuscular Volume 86.2 fL (80-100); Monocytes Absolute Auto 400 /uL (0-900); Monocytes Percent Auto 3.1 % (3-14); Neutrophils Absolute Auto 10700 /uL (1500-7000); Neutrophils Percent Auto 81.4 % (50-75); Platelet Count 128 X10^3/uL (150-400); Red Blood Cell Count 3.83 X10^6/uL (4.0-5.2); Red Cell Distribution Width 14.1 % (11.6-14.8); White Blood Cell Count 13.1 X10^3/uL (4.5-11.0)
[2024-05-18 16:59] LABS: Alanine Aminotransferase 16 IU/L (<35); Albumin 3.3 g/dL (3.5-5.0); Albumin Globulin Ratio 1.3 (1.0-2.8); Alkaline Phosphatase 172 U/L (38-126); Aspartate Aminotransferase 37 IU/L (14-36); BUN Creatinine Ratio 14.8 (6-22); Bilirubin Total 0.4 mg/dL (0.2-1.3); Blood Urea Nitrogen 12 mg/dL (7-17); Calcium 8.4 mg/dL (8.4-10.2); Carbon Dioxide 24 mmol/L (22-32); Chloride 105 mmol/L (98-107); Estimated Glomerular Filt Rate > 60 mL/min (>60); Globulin 2.6 g/dL (1.7-4.1); Glucose 92 mg/dL (70-100); HEMOLYSIS < 15 (0-50); Potassium 4.7 mmol/L (3.4-5.1); Sodium 134 mmol/L (137-145); Total Protein 5.9 g/dL (6.3-8.2)
[2024-05-18] MEDS: KETOROLAC 30 MG/ML VIAL IM (17:39)
[2024-05-19 06:09] LABS: Add Manual Diff / Slide Review NO; Basophils Absolute Auto 0 /uL (0-100); Basophils Percent Auto 0.3 % (0-2); Eosinophils Absolute Auto 100 /uL (0-450); Hematocrit 33.3 % (36-46); Hemoglobin 11.3 g/dL (12.0-16.0); Lymphocytes Absolute Auto 1500 /uL (1100-4500); Lymphocytes Percent Auto 13.8 % (25-40); Mean Corpuscular HGB Conc 33.8 % (30-36); Mean Corpuscular Hemoglobin 28.8 PG (26-34); Mean Corpuscular Volume 85.3 fL (80-100); Monocytes Absolute Auto 400 /uL (0-900); Monocytes Percent Auto 3.9 % (3-14); Neutrophils Absolute Auto 8700 /uL (1500-7000); Platelet Count 131 X10^3/uL (150-400); Red Blood Cell Count 3.91 X10^6/uL (4.0-5.2); White Blood Cell Count 10.7 X10^3/uL (4.5-11.0)
[2024-05-19 06:43] LABS: Alanine Aminotransferase 14 IU/L (<35); Albumin 3.1 g/dL (3.5-5.0); Albumin Globulin Ratio 1.3 (1.0-2.8); Alkaline Phosphatase 170 U/L (38-126); Aspartate Aminotransferase 32 IU/L (14-36); Bilirubin Total 0.5 mg/dL (0.2-1.3); Blood Urea Nitrogen 12 mg/dL (7-17); Calcium 7.5 mg/dL (8.4-10.2); Carbon Dioxide 28 mmol/L (22-32); Chloride 102 mmol/L (98-107); Estimated Glomerular Filt Rate > 60 mL/min (>60); Globulin 2.4 g/dL (1.7-4.1); Glucose 81 mg/dL (70-100); HEMOLYSIS < 15 (0-50); Sodium 133 mmol/L (137-145); Total Protein 5.5 g/dL (6.3-8.2)
[2024-05-19 06:50] LABS: Potassium 5.4 mmol/L (3.4-5.1)
[2024-05-19 06:51] LABS: Magnesium 5.4 mg/dL (1.6-2.3)
[2024-05-19] MEDS: KETOROLAC 30 MG/ML VIAL IM ×2 (06:57→14:40)
[2024-05-19] MEDS: FERROUS SULFATE 325 MG TABLET PO (07:43)
[2024-05-19] MEDS: PRENATAL VIT,CALC/IRON/FOLIC 1 TABLET 1 TAB PO (07:43)
[2024-05-19] MEDS: ACETAMINOPHEN 325 MG TABLET 650 MG PO ×2 (07:58→18:07)
[2024-05-19 08:13] LABS: Hepatitis B Surf Ab Qualitativ Reactive (.)
--- NOTE | 2024-05-19 08:38 | P.PNOB_ITS ---
Subjective - OB Subjective Patient comments: no complaints [place] baby status: doing well Date Patient Seen: 05/19/24 Time Patient Seen: 08:38 Interval history: Denies significant headache, vision changes, right upper quadrant pain, chest pain, or shortness of breath. Exam Vital Signs (past 8 hours): vitals reviewed in OBIX, normal range and a few mild range while on magnesium Const General: comfortable, well developed and No acute distress Resp Effort & Inspection: normal respiratory effort and able to speak in complete sentences Skin General: no rashes or lesions noted Neuro Cognition: normal cognition Speech: speech normal Extrem General: normal to inspection and no pedal edema Psych Mood: congruent mood Affect: normal affect Objective Labs 05/19/24 05:50 05/19/24 05:50 Labs: Laboratory Results - last 24 hr 05/17/24 05/18/24 05/18/24 14:24 09:32 16:10 WBC 13.1 H RBC 3.83 L Hgb 11.1 L Hct 33.0 L MCV 86.2 MCH 29.0 MCHC 33.6 RDW 14.1 Plt Count 128 L Neut % (Auto) 81.4 H Lymph % (Auto) 15.0 L [place] % (Auto) 3.1 Eos % (Auto) 0.2 L Baso % (Auto) 0.3 Neut # (Auto) 84737 H Lymph # (Auto) 2000 [place] # (Auto) 400 Eos # (Auto) 0 Baso # (Auto) 0 Sodium 134 L Potassium 4.7 Chloride 105 Carbon Dioxide 24 BUN 12 Creatinine 0.81 Estimated GFR > 60 BUN/Creatinine Ratio 14.8 Glucose 92 Calcium 8.4 Magnesium 5.0 H* Total Bilirubin 0.4 AST 37 H ALT 16 Alkaline Phosphatase 172 H Total Protein 5.9 L Albumin 3.3 L Globulin 2.6 Albumin/Globulin Ratio 1.3 U Random Total Protein 29 H Urine Creatinine 63.28 Protein/Creatinin Ratio 0.45 Hep Bs Antibody Reactive 05/19/24 05:50 WBC 10.7 RBC 3.91 L Hgb 11.3 L Hct 33.3 L MCV 85.3 MCH 28.8 MCHC 33.8 RDW 14.0 Plt Count 131 L Neut % (Auto) 81.0 H Lymph % (Auto) 13.8 L [place] % (Auto) 3.9 Eos % (Auto) 1.0 L Baso % (Auto) 0.3 Neut # (Auto) 8700 H Lymph # (Auto) 1500 [place] # (Auto) 400 Eos # (Auto) 100 Baso # (Auto) 0 Sodium 133 L Potassium 5.4 H Chloride 102 Carbon Dioxide 28 BUN 12 Creatinine 0.80 Estimated GFR > 60 BUN/Creatinine Ratio 15.0 Glucose 81 Calcium 7.5 L Magnesium 5.4 H* Total Bilirubin 0.5 AST 32 ALT 14 Alkaline Phosphatase 170 H Total Protein 5.5 L Albumin 3.1 L Globulin 2.4 Albumin/Globulin Ratio 1.3 U Random Total Protein Urine Creatinine Protein/Creatinin Ratio Hep Bs Antibody Assessment & Plan Assessment and Plan (1) Pre-eclampsia, severe, condition: Status: Acute (2) FTND (full term normal delivery): Status: Acute (3) Encounter for care in third trimester of first : Status: Acute (4) Rh(D) positive: Status: Acute (5) Depression with anxiety: Status: Acute Plan day: 2 plan OB: routine care Comments: 33yo [id number] PPD#2 s/p , with diagnosis of pre-eclampsia with severe features based on elevated AST to 2x normal. She also was noted to have thrombocytopenia, however her platelets did not go below 100, thus she does not meet criteria for HELLP syndrome. She has been on magnesium for approximately 10hrs, due to come off at 1130 this morning. Asymptomatic this morning, with all labs improving, thus plan for continued monitoring of her blood pressures off magnesium, with potential discharge tomorrow morning. Time-Based Coding :: [TOTAL MINUTES] spent with patient and on the chart (including review of chart, obtaining history, exam, reviewing outside data, placing orders, documenting exam and treatment plan, and counseling patient) on [DATE].
[2024-05-20] MEDS: ACETAMINOPHEN 325 MG TABLET 650 MG PO (01:27)
[2024-05-20] MEDS: polyethylene glycoL 3350 17 GM POWD.PACK PO (02:23)
--- NOTE | 2024-05-20 07:42 | P.DS_ITS ---
Discharge Providers Provider Date of admission: 05/16/24 09:03 Discharge Date: 05/20/24 Primary care physician: Lakshmi Rees CNM, TONGUE AND GROOVE MACHINE OPERATOR Consults: 05/16/24 12:32 Consult to Anesthesiology Urgent Comment: Consulting Provider: Anesthesiologist Reason for consultation: Epidural 05/18/24 08:34 Consult to Postal Sorting Officer Routine Comment: Discharge provider: Jennie Fernandez MD Summary Hospital Course Date Patient Seen: 05/20/24 Time Patient Seen: 07:45 Hospital Course: 33 year old who delivered a healthy baby boy on 05/17/24 at 40w2d after an uncomplicated . During , her BPs started in the 110s/high 60s and by 36 weeks were in the 120s/80s with the highest being 124/83. Labor was uncomplicated. Delivery complicated by cord avulsion. See procedure note for further details. APGARS were 9/9. A first degree tear was noted and repaired in the usual fashion. TXA was given due to QBL of 840mL. During labor, her blood pressures were labile with highest at 156/92, and some as low as 110/70s. PP CMP showed rising AST and dropping plts so she was continued inpt and started on magnesium to tx Pre-E w/ SF due to LFT elevation. Blood pressures remained normotensive through the PP course. Her AST downtrended and plts increased. She had no other Pre-E sx. After 24 hours of mag,it was discontinued. She was watchedf or 24 hours before discharge. At time of discharge she was denying Cao, vision changes, nasuea and RUQ pain. She noted constipation, for which she was counseled to start Miralax and drink lots of water. Peripartum Data Infant Delivery Method: Natural Vaginal Laceration Description: Perineal - 1st Degree complications: other (PPH, pre-E with SF ) Discharge Diagnosis (1) Pre-eclampsia, severe, condition: Status: Acute (2) FTND (full term normal delivery): Status: Acute (3) Encounter for care in third trimester of first : Status: Acute (4) Rh(D) positive: Status: Acute (5) Depression with anxiety: Status: Acute Status at Discharge Cognitive/behavioral status at discharge: oriented Time Spent with Patient Time attestation: Total time spent providing and/or coordinating discharge services: Time spent: Greater than 30 minutes Objective Labs 05/19/24 05:50 05/19/24 05:50 Labs: Laboratory Results - last 24 hr 05/17/24 14:24 Hep Bs Antibody Reactive Exam Vital Signs (past 8 hours): BP: 120/82, 114/67, 120/87, 125/76 P: 64 R: 18 breaths per min T- 98.4D O2- 100% Narrative Exam Narrative: GEN: Healthy appearing, well-developed, NAD. PSYCH: Good Judgment. AOx3. Normal memory, mood, and affect HEENT: -Head: NC/AT -Eyes: No discharge or redness CV: warm and well perfused, RRR, no murmurs LUNGS: breathing comfortably on RA, CTAB ABD: fundus firm below umbilicus SKIN: Warm, well perfused. No skin rashes or abnormal lesions Discharge Plan Discharge Plan Patient Disposition: Home Discharge orders & Medications Prescriptions: No Action No Known Home Medications Follow up/Referrals: Lakshmi Rees, LINDA, TONGUE AND GROOVE MACHINE OPERATOR [Primary Care Provider] - 2 Weeks (2 weeks and 6 weeks as scheduled in pt. e-mail.) Diet/Activity/Treatments Diet: Diet as Tolerated and Regular Diet comment: Increase fluid and fiber to aid in healing and prevent constipation. Activity: Low [place] x 2 weeks Cold/Heat Therapy: as needed Visit Report/Discharge Packet Stand Alone Forms: Discharge: Care Discharge Data Primary Care Provider: Lakshmi Rees Discharges patient from system. Discharge Date/Time: 05/20/24 10:30
[2024-05-20] MEDS: FERROUS SULFATE 325 MG TABLET PO (08:21)
[2024-05-20] MEDS: WITCH HAZEL/GLYCERIN PADS 1 EACH TOP (08:22)
[2024-05-20] MEDS: PRENATAL VIT,CALC/IRON/FOLIC 1 TABLET 1 TAB PO (08:22)
== END 2024-05-20 10:30 | disposition home or self-care (01) | DRG 807 ==
PROVIDERS: Student in an Organized Health Care Education/Training Program; Admitting Provider Advanced Practice Midwife; PCP Advanced Practice Midwife; Referring Provider Advanced Practice Midwife; Visit Provider Advanced Practice Midwife
DX: O42.12 Full-term premature rupture of membranes, onset of labor more than 24 hours following rupture (principal); Z37.0 Single live birth; O14.15 Severe pre-eclampsia, complicating the puerperium; O63.1 Prolonged second stage (of labor); O70.0 First degree perineal laceration during delivery; O69.89X0 Labor and delivery complicated by other cord complications, not applicable or unspecified; O64.5XX0 Obstructed labor due to compound presentation, not applicable or unspecified; Z3A.40 40 weeks gestation of pregnancy; Z67.10 Type A blood, Rh positive
CPT/HCPCS: 36415; 59050; 76815; 80053; 81003; 82570; 83735; 84112; 84156; 84550; 85014; 85018; 85025; 86850; 86900; 86901; G0379; J1885; J2405; J2590; J3475